=== PATIENT | female | born 1995 | race Caucasian/White ===

== ENCOUNTER → 2016-11-08 | Outpatient (CLI) | payer OTHER ==
[~2016-11-08] MED LIST: ESCI1TAB10 PO; LEVO1TAB19 PO
== END | disposition home or self-care (01) ==
LOC: C.PAPS 08:42
PROVIDERS: ATTEND Nurse Practitioner Family
DX: R87.612 Low grade squamous intraepithelial lesion on cytologic smear of cervix (LGSIL) (principal)

== ENCOUNTER → 2016-11-08 | Outpatient (CLI) | payer OTHER ==
[2016-11-12 15:12] LABS: CHLAMYDIA TRACH RNA*** NOT DETECTED (NOT DETECTED); GC (NEIS GONORRHOEAE)RNA** NOT DETECTED (NOT DETECTED)
== END | disposition home or self-care (01) ==
LOC: C.LABPVFM 14:07
PROVIDERS: ATTEND Nurse Practitioner Family
DX: R87.612 Low grade squamous intraepithelial lesion on cytologic smear of cervix (LGSIL) (principal)

== ENCOUNTER → 2017-07-07 | Outpatient (CLI) | payer OTHER ==
[2017-07-07 17:50] LABS: BLOOD UREA NITROGEN 7 mg/dl (7-18); BUN/CREATININE RATIO 8.5 (10-20); CARBON DIOXIDE 23 mmol/L (21-32); CHLORIDE 107 mmol/L (98-107); CREATININE 0.87 mg/dl (0.60-1.20); GLUCOSE 110 mg/dl (70-99); SODIUM 137 mmol/L (136-145)
[2017-07-07 18:39] LABS: BASO % 0.2 %; BASO ABS # 0.01 K/uL (0-0.2); COMPLETE YES; EOS % 2.7 %; HEMATOCRIT 43.7 % (37-47); IG% 0.2 %; LYMPH ABS # 1.72 K/uL (1.2-3.4); MEAN CELL VOLUME 85.9 fL (80-100); MEAN CORPUSCULAR HEMOGLOBIN 29.1 pg (25-34); MEAN CORPUSCULAR HGB CONC 33.9 g/dl (32-36); MEAN PLATELET VOLUME 11.8 fL (7.4-10.4); MONO % 7.4 %; NEUT % 58.5 %; PLATELET COUNT 295 K/uL (130-400); RED BLOOD COUNT 5.09 M/uL (4.2-5.4); WHITE BLOOD COUNT 5.55 K/uL (4.8-10.8)
== END | disposition home or self-care (01) ==
LOC: C.LABPVFM 13:34
PROVIDERS: ATTEND Family Medicine Adult Medicine
DX: B00.1 Herpesviral vesicular dermatitis (principal); L40.9 Psoriasis, unspecified

== ENCOUNTER 2021-04-10 03:52 | Inpatient (IN) ==
[2021-04-10] MEDS ORDERED: OXYTOCIN 30 UNITS/500 ML BAG IV PRN ×2 (04:36→04:42)
--- NOTE | 2021-04-10 04:51 | History & Physical Report ---
Date of Service April 10, 2021 Assessment & Plan (1) Spontaneous rupture of amniotic membranes: Plan: Nulliparous IUP at 38 weeks with SPROM but no contractions yet and it has been 2 hours since SPROM will ambulate for 1 hour then start pitocin augmentation epidural when requested anticipate vaginal History of Present Illness Primary Care Provider: EDGAR Sheets patient is a 26 yo white female EDC 04/24/21 who presents at 38 weeks with SPROM for clear fluid at 0230 this morning. No contractions yet.Baby active. GBS negative. A positive. has been uncomplicated except for smoking tobacco. Allergies Allergy/AdvReac Type Severity Reaction Status Date / Time No Known Allergies Allergy Verified 04/05/21 10:39 Home Medications Medication Instructions Recorded Confirmed Type prenat.vits,donte,fne-vtho-pvyrq 1 tab PO DAILY 09/06/20 04/10/21 History escitalopram oxalate 20 mg tablet 20 mg PO DAILY 04/10/21 04/10/21 History (Lexapro) Patient History Medical History Anxiety Asthma Depression History of chicken pox Psoriasis Surgical History Hx of wisdom tooth extraction Family History Grandmother Breast cancer Other Colorectal cancer Ovarian cancer Denies family history of Myocardial infarction Social History Smoking Status: Current every day smoker Tobacco Type: Cigarettes Years Smoked: 10; Cigarettes Per Day: 10; Do You Dip or Chew Tobacco: No; Hx Alcohol Use: No Hx Substance Use: No Preferred Language: Hungarian Communication Ability: Effective Garment Presser Required: No Beliefs That Will Affect Care: None marital status: Single marital status details: Gustavo Saenz (32) [phone] Current Living Situation: Significant Other and Other Current Living Situation Comment: 5 year old step daughter current occupational status: employed 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 [employer] Other Information That Helps Us Care for You: No Feels Safe at Home: Yes Safety Concerns: Feels Safe At This Time caffeine: Yes Dental Care, Regularly: Yes Physical Activity Frequency: 1-2 Times per Week Seatbelt Use: always Sunscreen Use: Yes Assistive Devices: Contacts and Glasses Review of Systems All systems reviewed & are unremarkable except as noted in HPI & below Physical Exam Constitutional: WD/WN, vitals as above Respiratory: normal respiratory effort, lungs clear to auscultation Cardiovascular: RRR, no murmur, no edema Psychiatric: A+Ox3, euthymic affect Genitourinary: OB Exam Abdomen: + vertex, + estimated weight (6-7 pounds) and + irregular contractions (very sporadic) Manual OB Exam: + cervical dilation (closed), + cervical effacement 50%, + station -2 and + amniotic fluid (grossly ruptured) clear and nitrazine positive OB Exam Monitor Tracing: + external FHT monitor used, + external uterine monitor used, + category I and + normal FHT variability Results & Data ([facility]) Vital Signs (Past 12 Hours) Vital Signs Temp Pulse Resp BP 04/10/21 04:15 98.1 F 18 04/10/21 04:08 79 122/58 L Code Status & VTE Plan VTE Prophylaxis Plan VTE Prophylaxis will be ordered: No Coding Level of Care Code None Diagnoses Spontaneous rupture of amniotic membranes
[2021-04-10 05:08] LABS: Hemoglobin 11.2 g/dL (12.0-16.0); Mean Corpuscular Hemoglobin 28.2 pg (25-34); Mean Corpuscular Hgb Conc 32.9 g/dL (32-36); Mean Corpuscular Volume 85.6 fL (80-100); Mean Platelet Volume 10.7 fL (7.4-10.4); Platelet Count 275 K/uL (130-400); RDW Standard Deviation 43.8 fL (36.4-46.3); Red Blood Count 3.97 M/uL (4.2-5.4); White Blood Count 13.73 K/uL (4.8-10.8)
[2021-04-10] MEDS: LACTATED RINGER'S 1,000 ML IV PRN ×2 (06:00→11:58)
[2021-04-10] MEDS ORDERED: ESCITALOPRAM OXALATE 20 MG TAB PO SCH (09:00)
--- NOTE | 2021-04-10 11:31 | Labor Progress Brief Note ---
Date of Service April 10, 2021 Subjective Getting uncomfortable with contractions. Assessment & Plan (1) Spontaneous rupture of amniotic membranes: Plan: getting uncomfortable. I think she will benefit from epidural to relax pelvis. She is agreeable. Will get at this time. May then need internals. Fetus category one. Admission and Anticipated Discharge Date Admission Date: April 10, 2021 Physical Exam Physical Exam: wdwnwf nad, breathing with contractions cx--/- toco--difficult tracing, q 2, pit at 17 efm--110 with mod variability, accels to 150s, no decels Results & Data ([facility]) Vital Signs (Past 12 Hours) Vital Signs Temp Pulse Resp BP 04/10/21 10:13 36.5 C 22 04/10/21 07:10 36.7 C 68 20 118/61 04/10/21 06:00 36.7 C 79 18 127/78 04/10/21 04:15 36.7 C 18 04/10/21 04:08 79 122/58 L Coding Level of Care Code None Diagnoses Spontaneous rupture of amniotic membranes
[2021-04-10] MEDS ORDERED: ePHEDrine sulfate 50 MG/ML AMP ONE (11:39)
[2021-04-10] MEDS ORDERED: BUPIVACAINE 0.25% 30 ML VIAL ONE (11:39)
[2021-04-10] MEDS ORDERED: fentaNYL citrate 100 MCG/2 ML VIAL ONE (11:39)
[2021-04-10] MEDS ORDERED: SODIUM CHLORIDE 0.9% INJ 10 ML VIAL ONE (11:39)
[2021-04-10] MEDS ORDERED: fentaNYL 2MCG/ML ROPIVACAINE 1.25MG/ML 100 ML BAG EPI ONE (11:40)
--- NOTE | 2021-04-10 12:24 | Anesthesiology Consultation ---
Date of Service April 10, 2021 Assessment & Plan Chart Review Chart Review: Acceptable Risk for Labor Epidural Consults Requested none History Height/Weight Height: 5 ft 6 in Weight: 92.079 kg Allergies Allergy/AdvReac Type Severity Reaction Status Date / Time No Known Allergies Allergy Verified 04/05/21 10:39 Medications Home Medications Medication Instructions Recorded Confirmed Last Taken prenat.vits,donte,tzc-pngg-xathq 1 tab PO DAILY 09/06/20 04/10/21 04/09/21 escitalopram oxalate 20 mg tablet 20 mg PO DAILY 04/10/21 04/10/21 04/09/21 (Lexapro) Active Medications Generic Name Dose Route Start Last Admin Trade Name Freq PRN Reason Stop Dose Admin Lactated Ringer's 1,000 mls @ 125 mls/hr 04/10/21 04:36 04/10/21 11:58 Lr IV 04/12/21 04:35 125 mls/hr .Q8H PRN Administration L&D Protocol Protocol Oxytocin 30 units in 500 mls @ 17 mls/hr 04/10/21 04:42 04/10/21 10:52 Pitocin IV 04/12/21 04:41 1.02 units/hr .Q24H PRN 17 mls/hr Labor Induction/Augmentation Titration Protocol 1.02 UNITS/HR Past Medical History Medical History Anxiety Asthma Depression History of chicken pox Psoriasis Past Family History Family History Grandmother Breast cancer Other Colorectal cancer Ovarian cancer Denies family history of Myocardial infarction Past Surgical History Surgical History Hx of wisdom tooth extraction Social History Smoking Status: Current every day smoker tobacco type: cigarettes Smoking cigarettes per day: 10 Do You Dip or Chew Tobacco: No Hx Alcohol Use: No Hx Substance Use: No substance use type: does not use Physical Exam Vital Signs Last Vital Signs Temp 36.5 C 04/10/21 10:13 Pulse 80 04/10/21 12:23 Resp 22 04/10/21 10:13 BP 117/64 08/03/21 12:23 Pulse Ox 97 04/10/21 12:19 Testing Laboratory Results 04/10/21 04:54
[2021-04-10] MEDS ORDERED: fentaNYL 2MCG/ML ROPIVACAINE 1.25MG/ML 100 ML BAG EPI PRN (12:26)
[2021-04-10] MEDS ORDERED: ePHEDrine sulfate 50 MG/ML AMP IV PRN (12:26)
[2021-04-10] MEDS ORDERED: NALOXONE HCL 0.4 MG/1 ML VIAL/CARP IV PRN (12:26)
[2021-04-10] MEDS ORDERED: NALBUPHINE HCL INJ 10 MG/ML AMP IV PRN (12:26)
[2021-04-10] MEDS ORDERED: NALOXONE HCL 1 MG in SODIUM CHLORIDE 0.9% 1000ML 1,000 ML IV PRN (12:26)
[2021-04-10] MEDS ORDERED: diphenhydrAMINE 50 MG/ML VIAL IV PRN (12:26)
--- NOTE | 2021-04-10 12:54 | Labor Progress Brief Note ---
Date of Service April 10, 2021 Subjective sleeping after epidural Assessment & Plan (1) Spontaneous rupture of amniotic membranes: Plan: Fetus more reassuring. will hold pit at 8 for now and recheck in about one hour. If no change, plann iupc. Admission and Anticipated Discharge Date Admission Date: April 10, 2021 Physical Exam Physical Exam: cx--deferred toco--q2min, with tachysystole noted, pit was at 17 and now decreased to 8 efm--baseline decreased after epidural to 110s, had some decels with tachysystole that have now resolved with decreasing pit Results & Data ([facility]) Vital Signs (Past 12 Hours) Vital Signs Temp Pulse Resp BP Pulse Ox 04/10/21 12:49 84 95 04/10/21 12:45 80 120/63 04/10/21 12:44 74 95 04/10/21 12:40 78 94 04/10/21 12:39 76 94 04/10/21 12:35 73 123/60 04/10/21 12:34 69 95 04/10/21 12:29 97 H 96 04/10/21 12:24 78 97 04/10/21 12:23 80 117/64 04/10/21 12:21 86 125/62 04/10/21 12:19 78 129/67 97 04/10/21 12:17 88 122/68 04/10/21 12:15 83 116/65 04/10/21 12:14 75 97 04/10/21 12:13 68 125/75 04/10/21 12:11 88 131/82 04/10/21 12:09 83 127/73 96 04/10/21 12:04 85 98 04/10/21 11:59 81 97 04/10/21 11:54 77 97 04/10/21 11:49 79 98 04/10/21 10:13 36.5 C 22 04/10/21 07:10 36.7 C 68 20 118/61 04/10/21 06:00 36.7 C 79 18 127/78 04/10/21 04:15 36.7 C 18 04/10/21 04:08 79 122/58 L Coding Level of Care Code None Diagnoses Spontaneous rupture of amniotic membranes
--- NOTE | 2021-04-10 14:27 | Labor Progress Brief Note ---
Date of Service April 10, 2021 Subjective comfortable with epidural, sleeping Assessment & Plan (1) Spontaneous rupture of amniotic membranes: Plan: x12 hours. Very minimal change. iupc placed. PItocin titrated to 200mvu. fetus reassuring. Admission and Anticipated Discharge Date Admission Date: April 10, 2021 Physical Exam Physical Exam: cx--tight /-1 iupc placed toco--q2-4min, pit at 8 efm--120s with mod variability, accels present, no decels Results & Data ([facility]) Vital Signs (Past 12 Hours) Vital Signs Temp Pulse Resp BP Pulse Ox 04/10/21 14:19 72 98 04/10/21 14:14 71 122/64 96 04/10/21 14:09 64 96 04/10/21 14:04 73 110/58 L 96 04/10/21 13:59 71 96 04/10/21 13:54 70 114/60 96 04/10/21 13:49 64 96 04/10/21 13:45 68 114/61 04/10/21 13:44 70 97 04/10/21 13:39 69 97 04/10/21 13:35 75 119/62 04/10/21 13:34 71 96 04/10/21 13:29 76 97 04/10/21 13:26 79 122/61 04/10/21 13:24 99 H 98 04/10/21 13:19 80 95 04/10/21 13:14 84 112/56 L 95 04/10/21 13:09 77 95 04/10/21 13:04 82 117/58 L 95 04/10/21 12:59 82 95 04/10/21 12:56 79 120/62 04/10/21 12:54 72 95 04/10/21 12:52 74 94 04/10/21 12:49 84 95 04/10/21 12:45 80 120/63 04/10/21 12:44 74 95 04/10/21 12:40 78 94 04/10/21 12:39 76 94 04/10/21 12:35 73 123/60 04/10/21 12:34 69 95 04/10/21 12:29 97 H 96 04/10/21 12:24 78 97 04/10/21 12:23 80 117/64 04/10/21 12:21 86 125/62 04/10/21 12:19 78 129/67 97 04/10/21 12:17 88 122/68 04/10/21 12:15 83 116/65 04/10/21 12:14 75 97 04/10/21 12:13 68 125/75 04/10/21 12:11 88 131/82 04/10/21 12:09 83 127/73 96 04/10/21 12:04 85 98 04/10/21 11:59 81 97 04/10/21 11:54 77 97 04/10/21 11:49 79 98 04/10/21 10:13 36.5 C 22 04/10/21 07:10 36.7 C 68 20 118/61 04/10/21 06:00 36.7 C 79 18 127/78 04/10/21 04:15 36.7 C 18 04/10/21 04:08 79 122/58 L Coding Level of Care Code None Diagnoses Spontaneous rupture of amniotic membranes
--- NOTE | 2021-04-10 17:13 | Labor Progress Brief Note ---
Date of Service April 10, 2021 Subjective comfortable with epidural, bloody show noted Assessment & Plan (1) Spontaneous rupture of amniotic membranes: Plan: Will allow to labor down. Fetus reassuring. anticipate . Admission and Anticipated Discharge Date Admission Date: April 10, 2021 Physical Exam Physical Exam: cx--rim/100/0 toco--q2-3min, pit at 12, adequate mvus efm--115 with mod variability, accels present, early decels noted Results & Data ([facility]) Vital Signs (Past 12 Hours) Vital Signs Temp Pulse Resp BP Pulse Ox 04/10/21 17:09 81 99 04/10/21 17:04 69 99 04/10/21 16:59 77 97 04/10/21 16:56 75 125/62 04/10/21 16:54 83 98 04/10/21 16:49 80 97 04/10/21 16:44 75 97 04/10/21 16:42 75 121/64 04/10/21 16:39 73 97 04/10/21 16:34 75 97 04/10/21 16:29 80 96 04/10/21 16:26 85 118/60 04/10/21 16:24 70 99 04/10/21 16:19 67 97 04/10/21 16:14 82 97 04/10/21 16:11 71 116/59 L 04/10/21 16:09 77 96 04/10/21 16:04 73 97 04/10/21 15:59 79 97 04/10/21 15:57 71 119/62 04/10/21 15:54 80 97 04/10/21 15:49 74 96 04/10/21 15:44 75 97 04/10/21 15:41 73 114/58 L 04/10/21 15:39 76 98 04/10/21 15:34 73 96 04/10/21 15:29 79 95 04/10/21 15:26 68 113/58 L 04/10/21 15:24 76 96 04/10/21 15:19 73 96 04/10/21 15:14 75 96 04/10/21 15:11 78 122/78 04/10/21 15:09 71 97 04/10/21 15:04 81 97 04/10/21 14:59 72 96 04/10/21 14:56 67 112/58 L 04/10/21 14:54 66 96 04/10/21 14:49 70 98 04/10/21 14:44 67 97 04/10/21 14:41 66 111/60 04/10/21 14:39 63 98 04/10/21 14:34 64 97 04/10/21 14:29 65 98 04/10/21 14:25 71 112/53 L 04/10/21 14:24 36.6 C 72 20 99 04/10/21 14:19 72 98 04/10/21 14:14 71 122/64 96 04/10/21 14:09 64 96 04/10/21 14:04 73 110/58 L 96 04/10/21 13:59 71 96 04/10/21 13:54 70 114/60 96 04/10/21 13:49 64 96 04/10/21 13:45 68 114/61 04/10/21 13:44 70 97 04/10/21 13:39 69 97 04/10/21 13:35 75 119/62 04/10/21 13:34 71 96 04/10/21 13:29 76 97 04/10/21 13:26 79 122/61 04/10/21 13:24 99 H 98 04/10/21 13:19 80 95 04/10/21 13:14 84 112/56 L 95 04/10/21 13:09 77 95 04/10/21 13:04 82 117/58 L 95 04/10/21 12:59 82 95 04/10/21 12:56 79 120/62 04/10/21 12:54 72 95 04/10/21 12:52 74 94 04/10/21 12:49 84 95 04/10/21 12:45 80 120/63 04/10/21 12:44 74 95 04/10/21 12:40 78 94 04/10/21 12:39 76 94 04/10/21 12:35 73 123/60 04/10/21 12:34 69 95 04/10/21 12:29 97 H 96 04/10/21 12:24 78 97 04/10/21 12:23 80 117/64 04/10/21 12:21 86 125/62 04/10/21 12:19 78 129/67 97 04/10/21 12:17 88 122/68 04/10/21 12:15 83 116/65 04/10/21 12:14 75 97 04/10/21 12:13 68 125/75 04/10/21 12:11 88 131/82 04/10/21 12:09 83 127/73 96 04/10/21 12:04 85 98 04/10/21 11:59 81 97 04/10/21 11:54 77 97 04/10/21 11:49 79 98 04/10/21 10:13 36.5 C 22 04/10/21 07:10 36.7 C 68 20 118/61 04/10/21 06:00 36.7 C 79 18 127/78 Coding Level of Care Code None Diagnoses Spontaneous rupture of amniotic membranes
[2021-04-10] MEDS ORDERED: oxyCODONE/ACETAMINOPHEN 5mg/325mg TAB PO PRN (19:14)
[2021-04-10] MEDS ORDERED: ACETAMINOPHEN 325 MG TAB PO PRN (19:14)
--- NOTE | 2021-04-10 19:15 | Delivery Summary ---
Vaginal Delivery Summary Date of Service April 10, 2021 Pre-operative Diagnosis: at 38 weeks prom Post-operative Diagnosis: same Procedure: pitocin augmentation epidural iupc bilateral labial laceration and repair EBL: 300cc Anesthesia: epidural Procedure: The patient presented to labor and delivery with gross prom and closed. Awaited three hours and pitocin started. IUPC placed to monitor contractions. The patient progressed to c/c +2 station. The patient pushed to deliver a viable female infant in oly position. The nose and mouth were bulb suctioned on the perineum and the rest of the was then delivered without difficulty. The baby was vigorous. The nose and mouth were again bulb suctioned and the infant was placed in the maternal abdomen for drying and attention. Cord was clamped and cut at one minute of life. Cord blood and segment obtained. Placenta delivered spontaneous, intact with a three vessel cord. Cervix/sulci/rectum/perineum were intact. Bilateral labial lacerations were repaired in the normal standard fashion. Hemostasis obtained with dilute pitocin and fundal massage. Apgars were 7/9. Mother and baby doing well at the end of the delivery. Vaginal Delivery Summary and 1st Degree LAC (bilateral labial repair) [facility] Charge Vaginal Delivery Codes: 36692 global code for the antepartum, delivery, and post- Delivery Type Details: and 1st Degree LAC (bilateral labial repair)
[2021-04-10 19:35] LABS: Base Excess Cord Arterial Bld -4.9 mEq/L (-9-1.8); CO2 Cord Arterial Blood 39 mmHg (39.1-73.5); HCO3 Cord Arterial Blood 20 mmol/L (19.7-28.5); PO2 Cord Arterial Blood 26 mmHg (4.1-31.7); pH Cord Arterial Blood 7.34 (7.1-7.38)
[2021-04-10 19:43] LABS: Base Excess Cord Venous Blood -4.7 mEq/L (-7.7-1.9); Cord Venous Blood HCO3 21 mmol/L (18.4-26.8); Cord Venous Blood PCO2 39 mmHg (30.4-57.2); Cord Venous Blood PO2 26 mmHg (14.1-43.3); Cord Venous Blood pH 7.34 (7.20-7.44); O2 Saturation Cord Venous Bld < 60.0 % (<68); Oxygen Sat Cord Arterial Blood < 60.0 % (<60)
[2021-04-10] MEDS ORDERED: Nursing to Pharmacy Communication SCH (19:45)
--- NOTE | 2021-04-10 19:51 | Anesthesia Procedure Note ---
Date of Service April 10, 2021 Anesthesia Post Epidural Note Vital Signs Vital Signs: Temp Pulse Resp BP Pulse Ox 36.7 C 90 18 114/64 94 04/10/21 18:55 04/10/21 19:41 04/10/21 19:10 04/10/21 19:41 04/10/21 18:49 Notes Mental Status: alert / awake / arousable Nausea / Vomiting: adequately controlled Pain: adequately controlled Airway Patency, RR, SpO2: stable & adequate BP & HR: stable & adequate Hydration State: stable & adequate Neuraxial Anesthesia: was administered and sensory block is resolving Anesthetic Complications: no major complications apparent and Pt Satisfied with anesthetic care Epidural: Removed without complications and With tip intact
[2021-04-10] MEDS ORDERED: BENZOCAINE 20% AER SPR 82.5 GM CAN EXT PRN (20:32)
[2021-04-10] MEDS ORDERED: SUPERCREAM 0.870% 15 GM JAR EXT PRN (20:32)
[2021-04-10] MEDS ORDERED: bisacodyL 10 MG SUPP PR PRN (20:32)
[2021-04-10] MEDS ORDERED: HYDROCORTISONE ACETATE 25 MG SUPP PR PRN (20:32)
[2021-04-10] MEDS: ESCITALOPRAM OXALATE 20 MG TAB PO SCH (21:24)
[2021-04-11] MEDS: IBUPROFEN 600 MG TAB PO PRN ×2 (02:56→18:47)
--- NOTE | 2021-04-11 07:09 | Obstetrical Progress Note ---
Date of Service April 11, 2021 Assessment & Plan (1) Vaginal delivery: Doing well. Routine pp care. will need MMR prior to d/c. Subjective Ambulation: ambulating normally Voiding: no voiding problems Passing Gas:: Yes Diet Tolerance:: regular diet Lochia:: Small Feeding Type:: breast feeding Patient feels well. Bottom a little sore. Physical Exam Constitutional WD/WN, vitals as above Respiratory normal respiratory effort, lungs clear to auscultation Cardiovascular RRR, no murmur, no edema Extremities: no calf tenderness and no edema Gastrointestinal (Abdomen) soft, nt, nd ff/nt at u Psychiatric A+Ox3, euthymic affect Results & Data ([facility]) Vital Signs (Past 12 Hours) Vital Signs Temp Pulse Pulse Resp BP BP Pulse Ox 04/11/21 03:57 37 C 71 16 122/77 97 04/10/21 23:35 37.1 C 83 16 127/71 95 04/10/21 21:20 37.4 C 87 17 120/73 95 04/10/21 21:01 77 131/60 04/10/21 20:56 79 137/63 04/10/21 20:55 18 04/10/21 20:41 83 132/63 04/10/21 20:27 94 H 139/63 04/10/21 20:25 18 04/10/21 20:11 81 132/64 04/10/21 19:56 86 113/60 04/10/21 19:55 18 04/10/21 19:41 90 114/64 04/10/21 19:40 20 04/10/21 19:34 86 111/58 L 04/10/21 19:25 18 04/10/21 19:11 100 H 130/68 04/10/21 19:10 18
[2021-04-11] MEDS: PRENATAL VITAMIN 1 TAB PO SCH (07:41)
[2021-04-11] MEDS: DOCUSATE SODIUM 100 MG CAP PO SCH ×2 (07:41→21:11)
[2021-04-11 07:55] LABS: Hematocrit (blood only) 32.3 % (37-47); Hemoglobin 10.7 g/dL (12.0-16.0)
[2021-04-11] MEDS ORDERED: bisacodyL 5 MG TABEC PO SCH (20:00)
[2021-04-11] MEDS: ESCITALOPRAM OXALATE 20 MG TAB PO SCH (21:11)
[2021-04-11] MEDS ORDERED: MEASLES, MUMPS & RUBELLA VIRUS VIAL SQ ONE (22:53)
--- NOTE | 2021-04-12 08:36 | Obstetrical Progress Note ---
Date of Service <Michelle BaileyDO - Last Filed: 04/12/21 08:35> April 12, 2021 Assessment & Plan <Michelle LeoDO - Last Filed: 04/12/21 08:35> (1) Encounter for care and examination after delivery: 26 yo post op day2 from , doing well. -Continue routine post care. -vital signs reviewed and WNL (Tmax 36.8) -Blood Type A+, GBS-, NOT Rubella immune -Encourage ambulation, monitor and control pain with Motrin, tylenol PRN, resume regular diet, monitor lochia -encourage breast feeding with bottle supplementation -hemoglobin 10.7 (8/4) Day #:: 2 <Taj Pace MD - Last Filed: 04/13/21 13:27> (1) Encounter for care and examination after delivery: Subjective <Michelle LeoDO - Last Filed: 04/12/21 08:35> Ambulation: ambulating normally Voiding: no voiding problems Passing Gas:: Yes Diet Tolerance:: regular diet Lochia:: Small Feeding Type:: breast feeding (supplemented by bottle feed) Current Pain Level(1-10): 1 (pain well controlled on medication) Review of Systems Denies fever, chills, sweats Denies shortness of breath, difficulty breathing, chest pain, palpitations, chest pressure. Denies breast pain. Denies dysuria. Denies headache or changes in vision. Physical Exam <Michelle LeoDO Coombs Last Filed: 04/12/21 08:35> General: Alert, oriented. No acute distress. Cardiac: Regular rate and rhythm, no murmurs/rubs/gallops. Respiratory: Clear to auscultation bilaterally a/p, no wheezes/rales/rhonchi. No increased work of breathing. Symmetrical chest rise. No respiratory distress. Abdomen: Soft, nontender, nondistended. Bowel sounds present. Uterus: Uterine fundus firm, palpable 1 cm below umbilicus. Lower Extremities: No lower extremity edema or swelling. No deep calf pain. Amada's negative bilaterally.. Results & Data ([facility]) <Michelle Bailey DO - Last Filed: 04/12/21 08:35> Vital Signs (Past 12 Hours) Vital Signs Temp Pulse Resp BP Pulse Ox 04/12/21 07:40 36.7 C 76 14 127/77 100 04/11/21 23:00 36.8 C 67 17 123/73 98 Medications Administered Current Inpatient Medications Acetaminophen (Acetaminophen 325 Mg Tab) 650 mg PO Q6H PRN PRN Reason: Pain/GUZMAN/Fever Stop: 05/10/21 19:13 Last Admin: 04/11/21 04:13 Dose: 650 mg Documented by: Benzocaine (Benzocaine 20% Aer Spr 82.5 Gm Can) 1 appln EXT PRN PRN PRN Reason: Perineal Discomfort Stop: 05/10/21 20:31 Last Admin: 04/11/21 04:09 Dose: 82.5 appln Documented by: Bisacodyl (Bisacodyl 10 Mg Supp) 10 mg VT DAILY PRN PRN Reason: No BM on 2nd post- day Stop: 05/10/21 20:31 Cocaine HCl (Supercream 0.870% 15 Gm Jar) 1 gm EXT BID PRN PRN Reason: Hemorrhoidal Inflammation Stop: 04/24/21 20:31 Docusate Sodium (Docusate Sodium 100 Mg Cap) 100 mg PO DAILY@ [facility] Stop: 05/10/21 20:59 Last Admin: 04/11/21 21:11 Dose: 100 mg Documented by: Escitalopram Oxalate (Escitalopram Oxalate 20 Mg Tab) 20 mg PO HS [facility] Stop: 05/10/21 20:59 Last Admin: 04/11/21 21:11 Dose: 20 mg Documented by: Hydrocortisone (Hydrocortisone Acetate 25 Mg Supp) 25 mg VT BID PRN PRN Reason: Hemorrhoidal Inflammation Stop: 05/10/21 20:31 Oxytocin (Pitocin) 30 units in 500 mls @ 333.333 mls/hr IV .Q1H30M PRN; Protocol PRN Reason: Bleeding Control Stop: 05/10/21 04:35 Ibuprofen (Ibuprofen 600 Mg Tab) 600 mg PO Q4H PRN PRN Reason: Pain/GUZMAN/Cramping/Fever Stop: 05/10/21 19:13 Last Admin: 04/11/21 18:47 Dose: 600 mg Documented by: Oxycodone/Acetaminophen (Oxycodone/Acetaminophen 5mg/325mg Tab) 1 tab PO Q4H PRN PRN Reason: Pain not relieved by... Stop: 04/24/21 19:13 Prenat Multivit/Arena/Iron/Folic Ac ( Vitamin 1 Tab) 1 tab PO DAILY@08 [facility] Stop: 05/11/21 07:59 Last Admin: 04/11/21 07:41 Dose: 1 tab Documented by: <Taj Pace MD - Last Filed: 04/13/21 13:27> Co-Signing Physician Notes Patient seen and evaluated and agree with the above finding and plan. Stable for discharge Resident Activity Tracking <Michelle Bailey DO - Last Filed: 04/12/21 08:35> Resident Involvement: Resident Care Provided Care Provided: OB Delivery
[2021-04-12] MEDS: DOCUSATE SODIUM 100 MG CAP PO SCH (08:47)
[2021-04-12] MEDS: IBUPROFEN 600 MG TAB PO PRN (08:47)
[2021-04-12] MEDS: PRENATAL VITAMIN 1 TAB PO SCH (08:48)
[2021-04-12 09:06] LABS: Hematocrit (blood only) 34.3 % (37-47); Hemoglobin 11.1 g/dL (12.0-16.0)
== END 2021-04-12 09:45 | disposition home or self-care (01) | DRG 807 ==
LOC: OPB 03:52 → 4S1 03:53 → 4S2 21:38